=== PATIENT | female | born 1990 | race Hispanic/Latino ===

== ENCOUNTER 2022-02-02 12:44 | Emergency (ER) | payer OTHER ==
[~2022-02-02] VITALS: Ht 157.5 cm; Wt 80.4 kg
[2022-02-02] MEDS ORDERED: ACET-683 PO (12:50)
[2022-02-02] MEDS ORDERED: MIRE1IUD IU (12:52)
[2022-02-02] MEDS ORDERED: KETOROLAC 30 MG/ML 1ML VIAL IM ONE (14:30)
[2022-02-02 14:45] VITALS: BP 117/68
== END 2022-02-02 14:54 | disposition home or self-care (01) ==
LOC: M ED 12:44
DX: U07.1 COVID-19 (principal); Z79.3 Long term (current) use of hormonal contraceptives
CPT/HCPCS: 87426; 87428; 96372; 99283; J1885